=== PATIENT | male | born 1960 | race Caucasian/White ===

== ENCOUNTER 2022-04-05 13:52 | Outpatient (CLI) | payer BC, SELFPAY ==
[2022-04-05 10:43] LABS: Albumin* 4.4 g/dL (3.3-5.0)
[2022-04-05 10:44] LABS: Chloride* 98 mmol/L (96-114); Sodium* 138 mmol/L (135-149)
[2022-04-05 10:46] LABS: Bilirubin Total* 0.3 mg/dL (0.1-1.5); Blood Urea Nitrogen* 12 mg/dL (7-30); Carbon Dioxide* 30 mmol/L (20-32); Cholesterol* 152 mg/dL (90-199); Creatinine* 0.7 mg/dL (0.5-1.5); Estimated Glomerular Filt Rate 105 ml/min; Total Protein* 7.3 g/dL (6.0-8.3)
[2022-04-05 10:47] LABS: Alanine Aminotransferase* 29 U/L (4-50); Alkaline Phosphatase* 90 U/L (40-150); Aspartate Amino Transferase* 29 U/L (12-35); Calcium* 9.4 mg/dL (8.4-10.6); Glucose* 119 mg/dL (60-115); Triglycerides* 81 mg/dL (40-149)
[2022-04-05 10:48] LABS: HDL Cholesterol* 44 mg/dL (>=40); LDL Cholesterol Calculated 92 mg/dL (<100)
[2022-04-05 11:14] LABS: PSA Screen* 0.58 ng/mL (0.10-4.00)
== END 2022-04-05 13:53 | disposition home or self-care (01) ==
PROVIDERS: PCP Family Medicine; Visit Provider Family Medicine
DX: Z00.00 Encounter for general adult medical examination without abnormal findings (principal); I10 Essential (primary) hypertension; E78.5 Hyperlipidemia, unspecified; E66.01 Morbid (severe) obesity due to excess calories; Z12.5 Encounter for screening for malignant neoplasm of prostate
CPT/HCPCS: 80053; 80061; 84153

== ENCOUNTER 2022-05-13 08:17 | Outpatient (CLI) | payer BC, SELFPAY ==
--- OUTSIDE RECORDS SUMMARY | 2022-05-13 08:26 | XMS_ITS | Clinical Summary ---
:1960 [address] [facility] [email or web address] [facility] [place] [address] Care Team Providers Name Role Phone Chandrakant Garcia MD Primary Care Provider Jason Nation MD Unavailable [phone] Anum Hernandez RN Unavailable Stacey Mcdaniel RD Unavailable Allergies Active Allergy Reactions Severity Noted Date Comments Nsaids (Non-Steroidal Other - Describe In 01/30/2021 H/o felicia-n-y gastric Anti-Inflammatory Drug) Comment Field byp ass. AVOID NSAIDs and aspirin due to risk of gastric and/or G-J anastomotic ulcers. If Euge ne must be on short cou rse of NSAIDs or aspir in, use enteric coated if possible and us e PPI // Anum duffy RN, Bariatric N [facility] Clinician, [facility] Weight Management 01/30 Penicillins Nausea And Vomiting 11/14/2006 Medications Medication Sig Dispensed Refills Start Date End Date Status FLOVENT HFA 110 Inhale 2 Puffs by 0 02/14/2020 Active mcg/actuation mouth 2 times inhaler daily. albuterol HFA Inhale 2 Puffs by 0 Active (PRO-AIR; VENTOLIN; mouth 2 times PROVENTIL) 90 daily. mcg/actuation inhaler ondansetron (ZOFRAN Place 2 Tablets (8 30 Tablet 0 01/29/2021 Active ODT) 4 mg mg) on the tongue disintegrating every 8 hours if tabletIndications: needed for S/P gastric bypass Nausea/Vomiting. docusate (COLACE) Take 1 Capsule (100 100 Capsule 0 01/29/2021 Active 100 mg mg) by mouth 2 capsuleIndications: times daily if S/P gastric bypass needed for Constipation. oxygen-air delivery Oxygen for home 1 Each 0 01/31/2021 Active systems (HOME use. Liters per OXYGEN)Indications: minute: 2 LPM nasal Morbid obesity with cannula at rest, 3 BMI of 60.0-69.9, LPM nasal cannula adult (HC), Tobacco with activity. dependence, MARAH Frequency of use: (obstructive sleep Continuous with apnea), S/P gastric portability.;. bypass Length of need: 3 Months. pedi multivit Chew 1 Tablet by 0 Active 43-iron fumarate mouth 2 times (Flintstones daily. Complete, iron,) 18 mg iron chewIndications: S/P gastric bypass cyanocobalamin Place 1 Tablet 0 Active (VITAMIN B12) 1,000 (1,000 mcg) under mcg sublingual the tongue once tabletIndications: daily. S/P gastric bypass citalopram (CELEXA) Take 1 Tablet (20 0 02/23/2021 Active 20 mg tablet mg) by mouth once daily. triamterene-hydrochl Take 1 Tablet by 0 02/23/2021 Active orothiazide, 37.5-25 mouth once daily. mg, (MAXZIDE-25) 37.5-25 mg tablet acetaminophen SR Take 2 Tablets 0 02/23/2021 Active (Tylenol Arthritis (1,300 mg) by mouth Pain) 650 mg at bedtime if Extended-Release needed. Max tablet acetaminophen dose: 4000mg in 24 hrs. omeprazole Take 1 Capsule (20 28 Capsule 0 03/08/2021 Active (PriLOSEC) 20 mg mg) by mouth 2 Delayed-Release times daily before capsuleIndications: meals. X 14 days H. pylori infection clarithromycin Take 1 Tablet (500 28 tablet. 0 03/08/2021 Active (BIAXIN) 500 mg mg) by mouth 2 tabletIndications: times daily. H. pylori infection metroNIDAZOLE Take 1 Tablet (500 28 tablet. 0 03/08/2021 Active (FLAGYL) 500 mg mg) by mouth 2 tabletIndications: times daily. H. pylori infection CPAPIndications: CPAP machine for 1 Each 11 06/12/2021 Active Mild obstructive home use at sleep apnea, Sleep pressure: 5-20 cmw related hypoxia , Heated humidifier x 1 q 5yr, water chamber x 1 q 6 mo, chin strap x 1 q 6 mo, Nasal interface mask x 1 q 3mos, with nasal cushion x 2 q mo, Heated PAP tubing x 1 q 3 mo, Headgear x 1 q 6 mo, non-disposable filters x 1 q 6 mo, disposable filter x 2 q mo; Length of Need: 99 months; Frequency of use: Daily Active Problems Patient Care Coordination Note Formatting of this note might be differe nt from the original. Nutrition Order 07/11/2020 Problem Noted Date S/P laparoscopic conversion of VBG to felicia-en-Y gastri c bypass 01/29/2021 Overview: Dr. Nation Morbid obesity with BMI of 60.0-69.9, adult 01/29/2021 HTN (hypertension) 01/29/2021 MARAH (obstructive sleep apnea) 01/29/2021 Morbid obesity with BMI of 60.0-69.9, adult 12/15/2020 Meniere disease 04/22/2014 Tobacco dependence 04/26/2013 Hyperplastic colon polyp 08/24/2012 Overview: Colonoscopy 08/2012 polyp repeat in 10 ye ars Anxiety state, unspecified 07/31/2012 MARAH (obstructive sleep apnea) 09/23/2011 Mild persistent asthma 11/19/2010 HTN (hypertension) 06/29/2010 Sensorineural hearing loss, asymmetrical 05/12/2007 Obesity Immunizations Name Administration Dates Next Due Influenza, IIV3 (Age >=3 years) 04/26/2013 Tdap 10/14/2011 Family History Medical History Relation Name Comments Diabetes Father Heart Disease Father CHF, CAD-first M I age 50 Hypertension Father Obesity Father Obesity Maternal Grandfather Stroke Maternal Grandfather Hypertension Maternal Grandmother Obesity Maternal Grandmother Hypertension Mother Obesity Mother Other Mother COPD Obesity Paternal Grandfather Hyperlipidemia Sister Obesity Sister Relation Name Status Comments Father Maternal Grandfather Maternal Grandmother Mother Paternal Grandfather Sister Social History Tobacco Use Types Packs/Day Years Used Date Former Smoker Cigarettes 1 30 Quit: 11/20/20 17 Smokeless Tobacco: Never Used Tobacco Cessation: Ready to Quit: Yes; C ounseling Given: Yes Comments: 3 cigarettes a week Alcohol Use Standard Drinks/Week Comments Not Currently 6.7 (1 standard drink = 0.6 oz pure alco hol) no Alcohol Habits Answer Date Recorded How often do you have a drink containing alcohol? Not asked How many drinks containing alcohol do you have on a typical Not asked day when you are drinking? How often do you have six or more drinks on one occasion? No t asked Comment: no 05/05/2020 Sex Assigned at Date Recorded Not on file Obstetrics History Last Filed Vital Signs Vital Sign Reading Time Taken Comments Blood Pressure 137/75 01/31/2021 7:40 AM CDT Pulse 87 01/31/2021 7:40 AM CDT Temperature 37.3 ??C (99.2 ??F) 01/31/2021 7:40 AM CDT Respiratory Rate 20 01/31/2021 7:40 AM CDT Oxygen Saturation 97% 01/31/2021 7:40 AM CDT Inhaled Oxygen Concentration - - Weight 152.4 kg (336 lb) 03/15/2021 8:00 AM CDT Height 173 cm (5' 8.11) 03/15/2021 8:00 AM CDT Body Mass Index 50.92 03/15/2021 8:00 AM CDT Plan of Treatment Health Maintenance Due Date Last Done Comments Pneumococcal series for age 19-64 1966 (1 - PCV) Depression screening for age 12+ 1972 Hepatitis C screening for age 1104/23/1978 18-79 Zoster (shingles) series for age 1104/23/2010 50+ (1 of 2) Lipids for age 45-75 04/26/2018 04/26/2013, 06/29/2010, 11/04/2005 COVID-19 vaccine series (3 - 11/24/2020 09/29/2020, 021 Booster for Moderna series) Tetanus booster 10/13/2021 10/14/2011 Influenza for age 50-64 02/14/2022 04/26/2013 BMI (ht and wt on same day) for 03/15/2022 03/15/2021, 07/0 07/2020, age 18+ 08/02/2020, Additional history exists Colonoscopy through age 75 08/20/2022 08/20/2012, 3 Tdap Completed 10/14/2011 HIV for age 15-65 Completed 08/13/2013 Results Not on filefrom Last 3 Months Insurance Payer Benefit Plan / Subscriber ID Effective Dates Phone Addre ss Type Group WC WORKERS WC WORKERS COMP [id number]-Prese [phone] [place] [address] [employer] [place] [employer] [id number] 2020-Presen [address] [address] [place] [address] Antonio Lopez Workers Comp Self 1960 [address] (Home) [address] [place] [address] [place] ([place]) [place] [address] Advance Directives Latest Code Status on File Code Status Date Activated Date Inactivated Comments Full Code 01/29/2021 7:29 AM 01/31/2021 6:36 PM Code Status Discussion: Not Discussed Full Code 06/06/2020 5:55 AM 06/06/2020 11:52 AM Code Status Discussion: Not Discussed Care Teams Care Attendant Relationship Specialty Start Date End Date Chandrakant Garcia MD PCP - General Family Practice 05/02/201999 [place] [phone] Jason Nation Consulting Physician Surgery - General 05/02/20 MD [place] [address] [address] Anum Hernandez, RN Registered Nurse 05/02/20 [address] Registered Dietitian It Infrastructure Manager 05/02/20 [address] [address]
[2022-05-13 09:04] LABS: SARS Antigen* Negative (Negative)
== END 2022-05-13 08:18 | disposition home or self-care (01) ==
LOC: OP CLINIC 08:17
PROVIDERS: PCP Family Medicine; Visit Provider Surgery
DX: Z12.11 Encounter for screening for malignant neoplasm of colon (principal); K63.5 Polyp of colon; K62.1 Rectal polyp; K64.9 Unspecified hemorrhoids; K64.4 Residual hemorrhoidal skin tags; K57.30 Diverticulosis of large intestine without perforation or abscess without bleeding
CPT/HCPCS: 45385; 87426; 88305; 99153; J2250; J3010

== ENCOUNTER 2022-07-10 07:31 | Outpatient (CLI) | payer MEDICARE, MEDICAID, SELFPAY ==
[2022-07-10 10:11] LABS: Aspartate Amino Transferase* 29 U/L (12-35); Cholesterol* 154 mg/dL (90-199)
[2022-07-10 10:12] LABS: Alanine Aminotransferase* 34 U/L (4-50); HDL Cholesterol* 53 mg/dL (>=40); LDL Cholesterol Calculated 73 mg/dL (<100); Triglycerides* 139 mg/dL (40-149)
== END 2022-07-10 07:32 | disposition home or self-care (01) ==
LOC: NFLDREF 07:31
PROVIDERS: PCP Family Medicine; Visit Provider Family Medicine
DX: E78.5 Hyperlipidemia, unspecified (principal)
CPT/HCPCS: 80061; 84450; 84460

== ENCOUNTER 2022-10-04 07:14 | Outpatient (RCR) | payer MEDICARE, MEDICAID, SELFPAY ==
--- NOTE | 2022-10-07 13:19 | PT.OPEX ---
PT [place] [facility] Eval PT [facility] Outpatient Eval Start: 10/04/22 14:53 Freq: Status: Active Protocol: Document 10/04/22 14:53 HERNESTO (Rec: 10/04/22 14:56 HERNESTO [id number]) E-signed By Alex Grewal DPT, MS Physical Therapy Outpatient Evaluation Insurance Information Recert Due Date 01/02/23 Insurance Name Medicare B,[facility] Medical Diagnosis Pain in left shoulder Treating Diagnosis L shoulder pain, decreased L shoulder flexibility and ROM, L scapular dyskinesis, and L UE and periscap weakness Subjective Subjective Pt presents to PT with c/o L shoulder pain over the past 4 weeks after his dog suddenly pulled hard on the leash. Intensity of lateral shoulder pain has improved but it remains painful with lifting and reaching above shoulder height. Describes previous L shoulder dislocation ~30 years ago during a fall. Recent radiographs found mild L OA with osteophytes on the GH surfaces. Complex PMH with pt on care home disability for Meniere?s disease. Lives alone in apartment with his service dog. PMH also includes obesity and HTN. AGGR factors: lifting, reaching, sleeping on L. ALLEV factors: rest, movement. Pain Comments 0-5/10 Current Work Status Clinical Lab Clerk Disability Preferred Name Gene Precautions Therapy Limitations/Systems Review Not Limited Objective Functional Test Performed & Score Quick DASH: 52% Assessment Assessment/Impression Pt displays signs and symptoms consistent with L RC impingement. No evidence of full RC tear with functional shoulder flex and ABD AROM. + RC impingement testing. Pain with end ROM flex, ABD and functional IR. L RC and periscap weakness found with testing. Objectively pt displays decreased L shoulder flexibility and ROM, L glenohumeral hypomobility, L scapular dyskinesis, and L UE and periscap weakness. Pt responded well to joint mobs, stretching and strengthening exercises with decreased pain and improved ROM following today?s session. He will benefit from continued skilled PT intervention to address these limitations. Plan of Care Rehabilitation Potential Good Rehabilitation Potential Comments Due to obesity and deconditioning Physical Therapy Goals Short-term goals to be completed in 4 weeks: 1. Pt will report improved quality of sleep not waking due to L shoulder pain for >3 consecutive nights. 2. Pt will display improved L shoulder flex and ABD AROM > 165 deg without pain to improve tolerance to lifting and dressing activities. Long-term goals to be completed in 10 weeks: 1. Pt will be independent and compliant with his HEP 2. Pt will display improved strength for L external and internal rotation, mid and low trap strength of >4/5 to improve tolerance to lifting objects into overhead cabinets and yardwork activities. 3. Pt will report >75% improvement in quick DASH questionnaire to significantly improve karlene to daily activities. 4. Pt will display >50% improvement in L functional IR AROM to tuck in shirts. Coordination/Communication With Referral Source Treatment Plan/Direct Interventions Joint Mobilization, Neuromuscular Re-ed, Therapeutic Exercises Frequency/Duration 1x per week for 6-10 visits, decreasing frequency as able. Patient Will Be Discharged From Therapy Completion of LTG(s),Skills Plateau,Independent w/HEP, Independently Progressing Evaluation Billing Untimed Code Treatment Minutes 24 Complexity Moderate Certification Information Initial Certification Date 10/04/22 Ending Certification Date 01/02/23 Provider Signature Shows Agreement With POC & Medical Necessity Physician Signature & Date Requested Please Sign/Date Here Physician Comment/Change : Physician NPI Number #
== END 2023-01-02 23:59 | disposition home or self-care (01) ==
PROVIDERS: PCP Family Medicine; Visit Provider Family Medicine
DX: M25.512 Pain in left shoulder (principal); Z51.89 Encounter for other specified aftercare
CPT/HCPCS: 97110; 97162

== ENCOUNTER 2023-04-08 07:20 | Outpatient (CLI) | payer MEDICARE, MEDICAID, SELFPAY | END 2023-04-08 07:21 | disposition home or self-care (01) | PROVIDERS: PCP Family Medicine; Referring Provider Family Medicine; Visit Provider Family Medicine | DX: Z00.00 Encounter for general adult medical examination without abnormal findings (principal); E78.5 Hyperlipidemia, unspecified; I10 Essential (primary) hypertension; E66.01 Morbid (severe) obesity due to excess calories; Z12.5 Encounter for screening for malignant neoplasm of prostate | CPT/HCPCS: 80053; 80061; 84153 ==

== ENCOUNTER 2024-02-29 09:35 | Emergency (ER) | payer MEDICARE, SELFPAY ==
[2024-02-29 09:44] VITALS: BP 152/78; PULSE 68; RESP 18; TEMP 35.8; O2SAT 95; BMI 44.3
--- NOTE | 2024-02-29 10:34 | ED_ITS ---
HPI - General Adult General Date Seen: 02/29/24 Chief complaint: Extremity Pain/Injury, Lower Stated complaint: knee/leg pain Time Seen by Provider: 02/29/24 10:34 History of Present Illness HPI narrative: 63-year-old gentleman with a past medical history of right knee pain, C7 radiculopathy, elevated BMI, sleep apnea, carpal tunnel surgery, hyperlipidemia, tobacco dependence, Meniere's disease, asthma, anxiety/depression, hypertension, Sergio-en-Y gastric bypass surgery, cholecystectomy. He presents to the ER today for left knee pain. He recalls that he has some chronic hip and knee pain from arthritis. He was walking yesterday. He did not have any specific fall or injury but wonders if he might have twisted his knee. He felt a pop somewhere inside of his left knee and ever since then he has been having knee pain and also some pain up into his right hip. No pain distally in the calf or ankle. He notes that the knee has gotten a little bit swollen and stiff today. It is hurting to walk on it. No fever or chills. No redness of the knee. No numbness or weakness in his leg. He has little bit of swelling in his knee but no swelling in the thigh or calf Related Data Home Medications ?Medication ?Instructions ?Recorded ?Confirmed Semaglutide 0.4 ml INJECTION QWEEK 07/31/23 10/28/23 Previous Rx's ?Medication ?Instructions ?Recorded albuterol sulfate 90 mcg/actuation 2 puff inhalation Q4-6H PRN 04/10/23 aerosol inhaler shortness of breath or wheezing #8.5 grams acetaminophen 650 mg 650 mg PO Q12H PRN arthritis #180 07/10/23 tablet,extended release (Tylenol tabs Arthritis Pain) fluticasone furoate 100 1 inh inhalation QDAY #90 ea 08/14/23 mcg/actuation blister powder for inhalation (Arnuity Ellipta) simvastatin 20 mg tablet 20 mg PO QPM #90 tabs 08/15/23 tamsulosin 0.4 mg capsule 0.4 - 0.8 mg (1 - 2 x 0.4 mg) PO 08/15/23 QHS #180 caps cetirizine 10 mg tablet (Zyrtec) 10 mg PO QDAY PRN itching #30 tabs 10/28/23 triamcinolone acetonide 0.1 % 1 applic topical BID #15 grams 10/28/23 topical cream triamterene 37.5 1 tab PO QDAY #90 tabs 12/09/23 mg-hydrochlorothiazide 25 mg tablet citalopram 20 mg tablet 20 mg PO QDAY #90 tabs 02/19/24 hydrocodone 5 mg-acetaminophen 325 1 - 2 tab PO Q6H PRN pain #10 tabs 02/29/24 mg tablet Allergies Allergy/AdvReac Type Severity Reaction Status Date / Time penicillin V Allergy Mild Unknown Verified 10/28/23 10:59 NSAIDS (Non-Steroidal Allergy Unknown Hx of Verified 10/28/23 10:59 Anti-Inflamma gastrobypass PFSH PFSH Medical History Morbid (severe) obesity due to excess calories ?E66.01 - Morbid (severe) obesity due to excess calories (ICD-10) Health care directive on file ?Z78.9 - Other specified health status (ICD-10) Surgical History (Updated 01/07/23 @ 08:24 by Angelina Mann ~ [facility], [facility]) Status post gastroplasty ?Z98.890 - Other specified postprocedural states (ICD-10) History of Sergio-en-Y gastric bypass (~02/2021) ?Z98.84 - Bariatric surgery status (ICD-10) History of colonoscopy ?Z98.890 - Other specified postprocedural states (ICD-10) History of cholecystectomy ?Z90.49 - Acquired absence of other specified parts of digestive tract (ICD- 10) Family History Other Colon cancer Social History (Updated 01/07/23 @ 08:23 by Angelina Mann ~ [facility], [facility]) Smoking Status: Former smoker What tobacco products do you use: cigarettes Smoking quit date/years: <= 15 years ago Do you use any of these nicotine containing products: None Second hand tobacco smoke exposure: No How often do you have a drink containing alcohol: never AUDIT-C Alcohol total score: 0 Non-prescribed substance use: denies use Little interest or pleasure in doing things: several days Feeling down, depressed, or hopeless: not at all Exam Narrative: Exam Narrative: Constitutional: Appears well-developed and well-nourished. Alert. Conversant. Non toxic. HENT: Head: Atraumatic. Nose: Nose normal. Mouth/Throat: Oral mucosa is clear and moist. no trismus.. Eyes: Conjunctivae normal. EOM normal. Pupils equal, round, and reactive to light. No scleral icterus. Neck: Normal range of motion. Neck supple. No tracheal deviation present. Cardiovascular: Normal rate, regular rhythm. No gallop. No friction rub. No murmur heard. Symmetric PT artery pulses Pulmonary/Chest: Effort normal. No stridor. No respiratory distress. No wheezes. No rales. No rhonchi . Musculoskeletal: RUE: Normal range of motion. No tenderness. No deformity LUE: Normal range of motion. No tenderness. No deformity RLE: Normal range of motion. No edema. No tenderness. No deformity Pelvis is stable LLE: Normal range of motion in his hip. No foreshortening or rotation. No tenderness over the lateral pelvis, posterior pelvis, greater trochanter. Quadriceps, hamstring, femoral shaft nontender. Knee: Very subtle swelling there. No redness or warmth. No definite ballotable effusion. Patella nontender. No crepitus. No definite point tenderness over the medial or lateral joint lines. Popliteal fossa nontender. He has pain with knee range of motion. He prefers to keep his knee fully extended. He is only able to actively flex up to about 30?. No ligamentous laxity of ACL, PCL, MCL, LCL, but my exam is limited by stiffness and muscular guarding. Neurological: Alert and oriented to person, place, and time. Normal strength. CN II-VII intact. No sensory deficit. GCS eye subscore is 4. GCS verbal subscore is 5. GCS motor subscore is 6. Normal coordination intact distal sensory and motor function. Skin: Skin is warm and dry. No rash noted. No pallor. Normal distal capillary refill. Psychiatric: Normal mood. Normal affect. Const: Vital Signs, click to edit/add: Vital Signs - 24 hr 02/29/24 09:44 Temperature 96.4 F L Pulse Rate [Pulse Oximeter] 68 Respiratory Rate 18 Blood Pressure [Ri ght Upper Arm] 152/78 H Pulse Oximetry 95 Oxygen Delivery Me thod Room Air Course Vital Signs Vital signs: Initial Vital Signs Temperature 96.4 F L 02/29/24 09:44 Temperature Source Temporal Artery Scan 02/29/24 09:44 Pulse Rate 68 02/29/24 09:44 Respiratory Rate 18 02/29/24 09:44 Blood Pressure 152/78 H 02/29/24 09:44 Blood Pressure Mean 102 02/29/24 09:44 Blood Pressure Position Supine 02/29/24 09:44 Pulse Oximetry 95 02/29/24 09:44 Oxygen Delivery Method Room Air 02/29/24 09:44 Vital Signs Temperature 96.4 F L 02/29/24 09:44 Pulse Rate 68 02/29/24 09:44 Respiratory Rate 18 02/29/24 09:44 Blood Pressure 152/78 H 02/29/24 09:44 Pulse Oximetry 95 02/29/24 09:44 Oxygen Delivery Method Room Air 02/29/24 09:44 Temperature 96.4 F L 02/29/24 09:44 Pulse Rate 68 02/29/24 09:44 Respiratory Rate 18 02/29/24 09:44 Blood Pressure 152/78 H 02/29/24 09:44 Pulse Oximetry 95 02/29/24 09:44 Oxygen Delivery Method Room Air 02/29/24 09:44 Medications Administered Medications: Discontinued Medications Generic Name Dose Route Start Last Admin Trade Name Freq PRN Reason Stop Dose Admin Hydrocodone Bitart/Acetaminophen 1 tab 02/29/24 10:51 02/29/24 10:54 Hydrocodone-Acetamin 5-325 Mg 1 Tab PO 02/29/24 10:52 1 tab ONCE ONE Administration Medical Decision Making MDM Narrative Medical decision making narrative: Very pleasant 63-year-old gentleman presenting to the ER today with atraumatic left knee pain. He was walking yesterday and felt a pop in his left knee and since then has been having pain. X-rays are obtained and are negative for any acute fracture. With the pop in the knee, suspicious for possible ligament or meniscus injury. On my ligamentous exam there is no obvious laxity although my exam could be limited by muscular guarding. He does have what I think is a very small joint effusion. There is no redness or warmth of the knee to suggest septic arthritis or crystalline arthritis. At this point I do not think he would benefit from attempts at arthrocentesis, in fact the risk of seeding and infection with our so since she is probably outweigh the benefit. No evidence for cellulitis of the leg, DVT. No evidence for acute limb ischemia. Although the pain radiates up to his hip, this really seems to be a knee problem rather than hip problem so would hold off on hip or pelvis x-rays for now. No evidence for femoral shaft fracture. Will place into a knee immobilizer. Who continues Tylenol if if needed for pain and add Belden if needed for pain uncontrolled by Tylenol. Prescription to [facility]. Reviewed opiate precautions. He will follow-up follow-up with the [facility] this week for re-evaluation. Will use the knee immobilizer when up and around until then. Discussed may need further workup with repeat exam and/or MRI. Imaging Data XR left knee three views: Attestation: I have reviewed the pertinent imaging results. My impression: Possible osteophyte from proximal tibia. No other definite acute fracture Radiologist's impression: IMPRESSION: No acute fracture. Dystrophic focus mineralization in the soft tissues superficial to the patellar tendon or adjacent medial retinaculum. No joint effusion. No fracture or bone lesion. Mild tricompartmental osteoarthritis in the medial compartment greater than patellofemoral and lateral. Discharge Plan Discharge Clinical Impression: Acute pain of left knee Patient Disposition: Home, Self-Care Instructions: Knee Pain (ED) Additional Instructions: As we discussed please come back to the ER right away if you have worsening or uncontrolled pain, worsening swelling, redness or warmth of your knee, high fever, or any problems Please call the [facility] tomorrow to arrange an ER follow-up appointment for within the next 2-4 days. [phone]. Use caution with hydrocodone because it can cause dizziness, drowsiness, constipation, and can be addictive Prescriptions: New hydrocodone-acetaminophen 5-325 mg tablet 1 - 2 tab PO Q6H PRN (Reason: pain) Qty: 10 0RF No Action albuterol sulfate 90 mcg/actuation HFA aerosol inhaler 2 puff inhalation Q4-6H PRN (Reason: shortness of breath or wheezing) Qty: 8.5 4RF Semaglutide 0.4 ml INJECTION QWEEK cetirizine [Zyrtec] 10 mg tablet 10 mg PO QDAY PRN (Reason: itching) Qty: 30 0RF triamcinolone acetonide 0.1 % cream 1 applic topical BID Qty: 15 0RF Rx Instructions: Small amount twice a day on forearms as needed for itching max 7 days acetaminophen [Tylenol Arthritis Pain] 650 mg tablet extended release 650 mg PO Q12H PRN (Reason: arthritis) Qty: 180 0RF Arnuity Ellipta 100 mcg/actuation blister with device 1 inh inhalation QDAY Qty: 90 1RF simvastatin 20 mg tablet 20 mg PO QPM Qty: 90 2RF tamsulosin 0.4 mg capsule 0.4 - 0.8 mg PO QHS Qty: 180 2RF triamterene-hydrochlorothiazid 37.5-25 mg tablet 1 tab PO QDAY Qty: 90 1RF citalopram 20 mg tablet 20 mg PO QDAY Qty: 90 0RF Follow Up/Referrals: Chandrakant Garcia MD [Primary Care Provider] - Stand Alone Forms: My[facility] Info Instructions
--- NOTE | 2024-02-29 10:51 | CRLHL7_ITS ---
For Patients: As a result of the Cures Act, medical imaging exams and procedure reports are released immediately into your electronic medical record. You may view this report before your referring provider. If you have questions, please contact your health care provider. INDICATION: Pain and popping. TECHNIQUE: Three views left knee. IMPRESSION: No acute fracture. Dystrophic focus mineralization in the soft tissues superficial to the patellar tendon or adjacent medial retinaculum. No joint effusion. No fracture or bone lesion. Mild tricompartmental osteoarthritis in the medial compartment greater than patellofemoral and lateral. Dictated by Jovanny Massey MD @ 02/29/2024 12:10:12 PM (Electronically Signed)
[2024-02-29] MEDS: HYDROCODONE-ACETAMIN 5-325 MG 1 TAB PO (10:54)
--- OUTSIDE RECORDS SUMMARY | 2024-02-29 11:05 | XMS_ITS | Clinical Summary ---
Author Organization [facility] s & [facility] Affiliates Address [place], [place] [address] Care Team Providers Care Career Technical Education Teacher Name Role Phone Chandrakant Garcia MD Primary Care Provider Jason Nation MD Unavailable Anum Keane RN Unavailable [phone] Unavailable [phone] Allergies Active Allergy Reactions Criticality Noted Date Comments Nsaids (Non-Steroidal Anti-Inflammatory Drug) Other - Describe In Comment Field 01/30/2021 H/o felicia-n-y gastric bypass. AVOID NSAIDs and aspirin due to risk of gastric and/or G-J anastomotic ulcers. If Antonio must be on short course of NSAIDs or aspirin, use enteric coated if possible and use PPI // Anum Hernandez RN, Bariatric Nurse Clinician, [facility] Weight Management 01/30/2021 Penicillins Nausea And Vomiting 11/14/2006 Medications Medication Sig Dispensed Refills Start Date End Date Status FLOVENT HFA 110 mcg/actuation inhaler Inhale 2 Puffs by mouth 2 times daily. 02/14/2020 Active albuterol HFA (PRO-AIR; VENTOLIN; PROVENTIL) 90 mcg/actuation inhaler Inhale 2 Puffs by mouth 2 times daily. Active pedi multivit 43-iron fumarate (Flintstones Complete, iron,) 18 mg iron chewIndications:S/P gastric bypass Chew 1 Tablet by mouth 2 times daily. 0 Active cyanocobalamin (VITAMIN B12) 1,000 mcg sublingual tabletIndications:S /P gastric bypass Place 1 Tablet (1,000 mcg) under the tongue once daily. 0 Active citalopram (CELEXA) 20 mg tablet Take 1 Tablet (20 mg) by mouth once daily. 02/23/2021 Active triamterene-hydroch lorothiazide, 37.5-25 mg, (MAXZIDE-25) 37.5-25 mg tablet Take 1 Tablet by mouth once daily. 0 02/23/2021 Active acetaminophen SR (Tylenol Arthritis Pain) 650 mg Extended-Release tablet Take 2 Tablets (1,300 mg) by mouth at bedtime if needed. Max acetaminophen dose: 4000mg in 24 hrs. 0 02/23/2021 Active CPAPIndications:Mil d obstructive sleep apnea,Sleep related hypoxia CPAP machine for home use at pressure: 5-20 cmw , Heated humidifier x 1 q 5yr, [...] Need: 99 months; Frequency of use: Daily 1 Each 11 06/12/2021 Active Active Problems Patient Care Coordination No te Formatting of this note migh t be different from the original. 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 Nation Morbid obesity with BMI of 60.0-69.9, adult 01/14 HTN (hypertension) 01/29/2021 MARAH (obstructive sleep apnea) 01/29/2021 Morbid obesity with BMI of 60.0-69.9, adult /07/2020 Meniere disease 04/22/2014 Tobacco dependence 04/26/2013 Hyperplastic colon polyp 08/24/2012 Overview (08/24/2012): Colonoscopy 08/2012 polyp repeat in 10 years Anxiety state, unspecified 07/31/2012 MARAH (obstructive sleep apnea) 09/23/2011 Mild persistent asthma 11/19/2010 HTN (hypertension) 06/29/2010 Sensorineural hearing loss, asymmetrical 007 Obesity Immunizations Name Administration Dates Next Due Influenza, IIV3 (Age >=3 years) 04/26/2013 Tdap 10/14/2011 Family History Medical History Relation Name Comments Diabetes Father Heart Disease Father CHF, CAD-first [place] age 50 Hypertension Father Obesity Father Obesity Maternal Grandfather Stroke Maternal Grandfather Hypertension Maternal Grandmother Obesity Maternal Grandmother Hypertension Mother Obesity Mother Other Mother COPD Obesity Paternal Grandfather Hyperlipidemia Sister Obesity Sister Relation Name Status Comments Father Maternal Grandfather Maternal Grandmother Mother Paternal Grandfather Sister Social History Tobacco Use Types Packs/Day Years Used Date Smoking Tobacco: Former Cigarettes 1 30 1 07/05/1986 - 05/05/2017 Smokeless Tobacco: Never Tobacco Cessation:Ready to Q uit: Yes; Counseling Given: Yes Comments:3 cigarettes a week Alcohol Use Standard Drinks/Week Comments Not Currently 6.7 (1 standard drink = 0.6 oz p ure alcohol) no Social Connections Answer Date Recorded Frequency of Communication with Friends and Fami ly Not on file 06/11/2021 Financial Resource Strain Answer Date R ecorded Difficulty of Paying Living Expenses Not on file 06/11/2021 Difficulty of Paying Living Expenses Not on file 06/11/2021 Sex and Gender Information Value Date Recorded Sex Assigned at Not on file Gender Identity Not on file Sexual Orientation Not on file Obstetrics History Last Filed Vital Signs Vital Sign Reading Time Taken Comments Blood Pressure 137/75 01/31/2021 7:40 AM CDT Pulse 87 01/31/2021 7:40 AM CDT Temperature 37.3 ??C (99.2 ??F) 01/31/2021 7:40 AM CD T Respiratory Rate 20 01/31/2021 7:40 AM CDT Oxygen Saturation 97% 01/31/2021 7:40 AM CDT Inhaled Oxygen Concentration - - Weight 152.4 kg (336 lb) 03/15/2021 8:00 AM CDT Height 173 cm (5' 8.11) 03/15/2021 8:00 AM CDT Body Mass Index 50.92 03/15/2021 8:00 AM CDT Plan of Treatment Health Maintenance Due Date Last Done Comments Depression screening for age 12+ 1972 Hepatitis C screening for age 18-79 1978 Zoster (shingles) series for age 50+ (1 of 2) 2010 Lipids for age 45-75 04/26/2018 04/26/2013, 06/29/2010, 11/04/2005 Tetanus booster 10/13/2021 10/14/2011 BMI (ht and wt on same day) for age 18+ 03/15/2022 03/15/2021, 12/15/2020, 08/02/2020, Additional history exists Colonoscopy through age 75 08/20/2022 08/20/2012, COVID-19 vaccine series (2022-24 season) 2024 2022, 10/16/2021, 06/18/2021, Additional history exists Influenza for age 50-64 02/15/2024 04/26/2013 Tdap Completed 10/14/2011 HIV for age 15-65 Completed 08/13/2013 Pneumococcal series for age 6-64 Aged Out No longer eligible based on patient's age to complete this topic Procedures Procedure Name Priority Date/Time Associated Diagnosis Comments ANTI HIV 1/2 Routine 08/13/2013 10:19 AM WEIGH TANK OPERATOR Peripheral neuropathy (HC) LIPID PANEL W REFLEX MEASURED LDL Routine 04/26/2013 11:20 AM WEIGH TANK OPERATOR Lipid screening from Last 3 Months or Most Recently Relevant to Health Maintenance Results * ANTI HIV 1/2 (08/13/2013 10:19 AM WEIGH TANK OPERATOR) ANTI HIV 1/2 Non-reacti ve [facility] Blood specimen (specimen) BLOOD SPECIMEN / Unknown 08/13/2013 10:19 AM WEIGH TANK OPERATOR 08/13/2013 10:10 AM WEIGH TANK OPERATOR Kely Caal MD SEND OUTS [facility] INTERNAL ZIP [address] [place] [address] * LIPID PANEL W REFLEX MEASURED LDL (04/26/2013 11:20 AM WEIGH TANK OPERATOR) [facility] Signature CHOLESTEROL,TOTAL 144 100 - 199 mg/dL 04/26/2013 12:17 PM WEIGH TANK OPERATOR [facility] TRIGLYCERIDES 113 <150 mg/dL 04/26/2013 12:17 PM [facility] HDL CHOLESTEROL 45 >40 mg/dL 3 12:17 PM WEIGH TANK OPERATOR [facility] NON-HDL CHOLESTEROL 99 <145 mg/dl 04/26/2013 12:17 PM [facility] CHOL/HDL RATIO 3.20 <4.50 04/26/2013 12:17 PM [facility] LDL CHOLESTEROL 76 <=130 mg/dL 04/26/2013 12:17 PM [facility] PATIENT STATUS NON-FASTI NG 04/26/2013 12:17 PM [facility] Blood specimen (specimen) BLOOD SPECIMEN / Unknown Venipuncture / Unknown 04/26/2013 11:20 AM WEIGH TANK OPERATOR 04/26/2013 11:20 AM WEIGH TANK OPERATOR Kely Caal MD CHEMISTRY [facility] [address] [place] [address] from Last 3 Months or Most Recently Relevant to Health Maintenance Advance Directives * Full Code (Latest Code Status on File) Date Activated Date Inactivated Comments 01/29/2021 7:29 AM 01/31/2021 6:36 PM Question Answer Comments Code Status Discussion: Not Discussed * Full Code Date Activated Date Inactivated Comments 06/06/2020 5:55 AM 06/06/2020 11:52 AM Question Answer Comments Code Status Discussion: Not Discussed Care Teams Career Technical Education Teacher Relationship Specialty Start Date End Date Chandrakant Garcia MD [address] [place] [address] PCP - General Family Practice 05/02/20 Jason Nation MD [address] [place] [id number] Consulting Physician Surgery - General 05/02/20 Anum Keane RN [address] [place] [address] Registered Nurse 05/02/[address] [place] [address] Registered Dietitian Radiation Oncology Therapist 05/02/20
== END 2024-02-29 12:45 | disposition home or self-care (01) ==
PROVIDERS: Emergency Provider Emergency Medicine; PCP Family Medicine
DX: M25.562 Pain in left knee (principal)
CPT/HCPCS: 73562; 99282; 99283; 99284; A9270

== ENCOUNTER 2024-04-08 07:28 | Outpatient (CLI) | payer MEDICARE, SELFPAY ==
--- OUTSIDE RECORDS SUMMARY | 2024-04-09 11:22 | XMS_ITS | Clinical Summary ---
Author Organization [facility] s & [facility] Affiliates Address [place], [place] [address] Care Team Providers Care Assembly Hand Name Role Phone Chandrakant Garcia MD Primary Care Provider [phone] Jason Nation MD Unavailable Anum Keane RN Unavailable [phone] Unavailable [phone] Allergies Active Allergy Reactions Criticality Noted Date Comments Nsaids (Non-Steroidal Anti-Inflammatory Drug) Other - Describe In Comment Field 01/30/2021 H/o felicia-n-y gastric bypass. AVOID NSAIDs and aspirin due to risk of gastric and/or G-J anastomotic ulcers. If Antonio must be on short course of NSAIDs or aspirin, use enteric coated if possible and use PPI // Anum Hernandez RN, Bariatric Nurse Clinician, [facility] Weight Management 01/30/2021 Penicillins Nausea And Vomiting [...] months; Frequency of use: Daily 1 Each 06/12/2021 Active Active Problems Patient Care Coordination [...] Morbid obesity with BMI of 60.0-69.9, adult 07/07/2020 Meniere disease 04/22/2014 Tobacco dependence 04/26/2013 Hyperplastic colon polyp 08/24/2012 Overview (08/24/2012): Colonoscopy 08/2012 polyp repeat in 10 years Anxiety state, unspecified 07/31/2012 MARAH (obstructive sleep apnea) 09/23/2011 Mild persistent asthma 11/19/2010 HTN (hypertension) 06/29/2010 Sensorineural hearing loss, asymmetrical 007 Obesity Encounters Date Type Department Care Team Description 03/18/2024 10:00 AM CDT Office Visit [facility] [address] [place], [place] [id number] Jonny Kimball, [facility] 03/18/2024 Travel from Last 3 Months Immunizations Name Administration Dates Next Due Influenza, IIV3 (Age >=3 years) 04/26/2013 Tdap 10/14/2011 Family History Medical History Relation Name Comments Diabetes Father Heart Disease Father CHF, CAD-first [place] age 50 Hypertension Father Obesity Father Obesity [...] age 75 08/20/2022 08/20/2012, COVID-19 vaccine series ( season) 2024 04/10/2023, 2022, 10/16/2021, Additional history exists Influenza for age 50-64 02/15/2024 04/26/2013 Tdap Completed 10/14/2011 HIV for age 15-65 Completed 08/13/2013 Pneumococcal series for age 6-64 Aged Out No longer eligible based on patient's age to complete this topic Procedures Procedure Name Priority Date/Time Associated Diagnosis Comments ANTI HIV 1/2 Routine 08/13/2013 10:19 AM DIRECTOR BUSINESS MANAGEMENT Peripheral neuropathy (HC) LIPID PANEL W REFLEX MEASURED LDL Routine 04/26/2013 11:20 AM DIRECTOR BUSINESS MANAGEMENT Lipid screening from Last 3 Months or Most Recently Relevant to Health Maintenance Results * ANTI HIV 1/2 (08/13/2013 10:19 AM DIRECTOR BUSINESS MANAGEMENT) ANTI HIV 1/2 Non-reacti ve [facility] Blood specimen (specimen) BLOOD SPECIMEN / Unknown 08/13/2013 10:19 AM DIRECTOR BUSINESS MANAGEMENT 08/13/2013 10:10 AM DIRECTOR BUSINESS MANAGEMENT Kely Caal MD SEND OUTS [facility] INTERNAL ZIP [address] [place] [address] * LIPID PANEL W REFLEX MEASURED LDL (04/26/2013 11:20 AM DIRECTOR BUSINESS MANAGEMENT) CHOLESTEROL,TOTAL 144 100 - 199 mg/dL 04/26/2013 12:17 PM [facility] TRIGLYCERIDES 113 <150 mg/dL 04/26/2013 12:17 PM [facility] HDL CHOLESTEROL 45 >40 mg/dL 3 12:17 PM [facility] NON-HDL CHOLESTEROL 99 <145 mg/dl 04/26/2013 12:17 PM [facility] CHOL/HDL RATIO 3.20 <4.50 04/26/2013 12:17 PM [facility] LDL CHOLESTEROL 76 <=130 mg/dL 04/26/2013 12:17 PM [facility] PATIENT STATUS NON-FASTI NG 04/26/2013 12:17 PM [facility] Blood specimen (specimen) BLOOD SPECIMEN / Unknown Venipuncture / Unknown 04/26/2013 11:20 AM DIRECTOR BUSINESS MANAGEMENT 04/26/2013 11:20 AM DIRECTOR BUSINESS MANAGEMENT Kely Caal MD CHEMISTRY [facility] [address] [place] [address] from Last 3 Months or Most Recently [...] Code Status Discussion: Not Discussed Care Teams Assembly Hand Relationship Specialty Start Date End Date Chandrakant Garcia MD [address] [place] [address] PCP - General Family Practice 05/02/20 Jason Nation MD [address] [address] Consulting Physician Surgery - General 05/02/20 Anum Keane RN [address] [place] [address] [place] [address] Registered Nurse 05/02/[address] [place] [address] [place] [address] Registered Dietitian Construction Producer 05/02/20
== END 2024-04-08 07:29 | disposition home or self-care (01) ==
LOC: NFLDREF 04-09 11:20
PROVIDERS: PCP Family Medicine; Referring Provider Family Medicine; Visit Provider Family Medicine
DX: Z00.00 Encounter for general adult medical examination without abnormal findings (principal); E78.5 Hyperlipidemia, unspecified; Z12.5 Encounter for screening for malignant neoplasm of prostate; E66.01 Morbid (severe) obesity due to excess calories; I10 Essential (primary) hypertension
CPT/HCPCS: 80053; 80061; G0103

== ENCOUNTER 2024-06-30 07:55 | Outpatient (CLI) | payer MEDICARE, SELFPAY | END 2024-06-30 07:56 | disposition home or self-care (01) | LOC: NFLDREF 07-07 10:26 | PROVIDERS: PCP Family Medicine; Referring Provider Family Medicine; Visit Provider Family Medicine | DX: R60.0 Localized edema (principal) | CPT/HCPCS: 80048 ==

== ENCOUNTER 2024-07-31 19:08 | Emergency (ER) | payer MEDICARE, SELFPAY ==
--- OUTSIDE RECORDS SUMMARY | 2024-07-31 19:10 | XMS_ITS | Clinical Summary ---
Author Organization [facility] Address [address] [facility] , [address] [place] [address] Phone Care Team Providers Care Graphic Production Artist Name Role Phone Ruma ROWE, Morris Lynch Conditions or Problems Problem Name Problem Code Onset Date Status Entry Date Provider Comment Standard Description Annotate Left median neuropathy 485901332 (SNOMED CT) Active Morris Hendrix MD Median neuropathy Cervical radiculopath y, left 94264625 (SNOMED CT) Active Morris Hendrix MD Cervical radiculopathy Medications No information available. Medications Administered No information available. Allergies, Adverse Reactions, Alerts No information available. Results Date Name Value Unit Range Flag Description Internal Other: Authorizatio n - OBS [email or web address] Yes Authoriza tion: Release of Information - Authorize [facility] - Payment and Healthcare Operations [email or web address] Yes Authoriz ation: Release of Information - Authorize Others/Insurance - Payment and Healthcare Operations HIECONSENT Yes Consent To Release information to the Health Information Exchange (HIE) [email or web address] Yes Authorizat ion: Authorization for [facility] to leave messages, voicemail, send text messages, send emails [email or web address] Yes Authoriz ation: Release/Retrieval of Information to/from Healthcare Facilities, Pharmacy Benefit Payers and Providers [email or web address] Yes Authoriz ation: Notice of privacy practices AUTHBENEFIT Yes Authoriza tion: Assignment of Benefits and Payment Agreement Plan of Care No information available. Procedures Code Procedure Name Date Entry Date CPT-00758 Nerve Conduction 9-10 studies CPT-70299 EMG with NCS (5+ muscles) - 1 limb 11/07 Vital Signs No information available. Immunizations No information available. Advance Directives No information available.
--- OUTSIDE RECORDS SUMMARY | 2024-07-31 19:10 | XMS_ITS | CCD ---
Author Organization Unknown Care Team Providers Care Rollway Man Name Role Phone [facility], [place] Primary Care Provider Unava ilable Unavailable Chronic Care Management Unavaila ble Summary Purpose DataExchange Insurance Providers Payer name Policy type / Coverage type Covered democrat ID Effective Begin Date Effective End Date [facility] Commercial Insurance [id number] Unknown [facility] Commercial Insurance [id number] Unknown Family History Family History data not found Medication Administered No Medication Administered data Reason For Visit No Reason For Visit data
--- OUTSIDE RECORDS SUMMARY | 2024-07-31 19:10 | XMS_ITS | Clinical Summary ---
Author Organization [facility] s & [facility] Affiliates Address [place], [place] [address] Care Team Providers Care Activity Aid Name Role Phone Chandrakant Garcia MD Primary Care Provider Jason Nation MD Unavailable [phone] Anum Keane RN Unavailable [phone] Unavailable [phone] Allergies Active Allergy Reactions Criticality Noted Date Comments Nsaids (Non-Steroidal Anti-Inflammatory Drug) Other - Describe In Comment Field 01/30/2021 H/o felicia-n-y gastric bypass. AVOID NSAIDs and aspirin due to risk of gastric and/or G-J anastomotic ulcers. If Antonio must be on short course of NSAIDs or aspirin, use enteric coated if possible and use PPI // Anum Hernandez RN, Bariatric Nurse Clinician, [facility] Weight Management 01/30/2021 Penicillins Nausea And Vomiting 11/14/2006 Medications FLOVENT HFA 110 mcg/actuation inhaler Inhale 2 Puffs by mouth 2 times daily. 0 Active albuterol HFA (PRO-AIR; VENTOLIN; PROVENTIL) 90 mcg/actuation inhaler Inhale 2 Puffs by mouth 2 times daily. Active pedi multivit 43-iron fumarate (Flintstones Complete, iron,) 18 mg iron chewIndications :S/P gastric bypass Chew 1 Tablet by mouth 2 times daily. 0 Active cyanocobalamin (VITAMIN B12) 1,000 mcg sublingual tabletIndicatio ns:S/P gastric bypass Place 1 Tablet (1,000 mcg) under the tongue once daily. 0 Active citalopram (CELEXA) 20 mg tablet Take 1 Tablet (20 mg) by mouth once daily. 1 Active triamterene-hyd rochlorothiazid e, 37.5-25 mg, (MAXZIDE-25) 37.5-25 mg tablet Take 1 Tablet by mouth once daily. 0 1 Active acetaminophen SR (Tylenol Arthritis Pain) 650 mg Extended-Releas e tablet Take 2 Tablets (1,300 mg) by mouth at bedtime if needed. Max acetaminophen dose: 4000mg in 24 hrs. 0 1 Active CPAPIndications :Mild obstructive sleep apnea,Sleep related hypoxia CPAP machine [...] Frequency of use: Daily 1 Each 11 1 Active Active Problems Patient Care Coordination No [...] Diabetes Father Heart Disease Father CHF, CAD-first [place] age 50 Hypertension Father Obesity Father Obesity [...] Recorded Sex Assigned at Not on file Legal Sex Male 6:40 AM PILLOW CLEANER Gender Identity Not on file Sexual Orientation Not on file Obstetrics History Last Filed Vital Signs Vital Sign Reading Time Taken Comments Blood Pressure 137/75 01/31/2021 7:40 AM CDT Pulse 87 01/31/2021 7:40 AM CDT Temperature 37.3 C (99.2 F) 01/31/2021 7:40 AM CDT Respiratory Rate 20 [...] Hepatitis C screening for age 18-79 1978 Pneumococcal series for age 50+ (1 of 1 - PCV) 2010 Zoster (shingles) series for age 50+ (1 of 2) 2010 Lipids for age 45-75 04/26/2018 04/26/2013, 06/29/2010, 11/04/2005 RSV vaccine for adults or (1 - Risk 60-74 years 1-dose series) 2020 Tetanus booster 10/13/2021 10/14/2011 BMI (ht and wt on same day) for age 18+ 03/15/2022 03/15/2021, 12/15/2020, 08/02/2020, Additional history exists Colonoscopy through age 75 08/20/2022 08/20/2012, COVID-19 vaccine series ( season) 2024 04/10/2023, 2022, 10/16/2021, Additional history exists Influenza for age 50-64 02/15/2024 04/26/2013 Tdap Completed 10/14/2011 HIV for age 15-65 Completed 08/13/2013 Pneumococcal series for age 6-49 Aged Out No longer eligible based on patient's age to complete this topic Procedures Procedure Name Priority Date/Time Associated Diagnosis Comments ANTI HIV 1/2 Routine 08/13/2013 10:19 AM PILLOW CLEANER Peripheral neuropathy (HC) LIPID PANEL W REFLEX MEASURED LDL Routine 04/26/2013 11:20 AM PILLOW CLEANER Lipid screening from Last 3 Months or Most Recently Relevant to Health Maintenance Results * ANTI HIV 1/2 (08/13/2013 10:19 AM PILLOW CLEANER) ANTI HIV 1/2 Non-reacti ve [facility] Blood specimen (specimen) BLOOD SPECIMEN / Unknown 08/13/2013 10:19 AM PILLOW CLEANER 08/13/2013 10:10 AM PILLOW CLEANER us Kely Caal MD SEND OUTS Final R esult [facility] INTERNAL ZIP [address] [place] [address] * LIPID PANEL W REFLEX MEASURED LDL (04/26/2013 11:20 AM PILLOW CLEANER) CHOLESTEROL,TOTAL 144 100 - 199 mg/dL 04/26/2013 12:[address] [facility] TRIGLYCERIDES 113 <150 mg/dL 04/26/2013 12:17 PM [facility] HDL CHOLESTEROL 45 >40 mg/dL 3 12:[address] [facility] NON-HDL CHOLESTEROL 99 <145 mg/dl 04/26/2013 12:17 PM [facility] CHOL/HDL RATIO 3.20 <4.50 04/26/2013 12:17 PM [facility] LDL CHOLESTEROL 76 <=130 mg/dL 04/26/2013 12:17 PM [facility] PATIENT STATUS NON-FASTI NG 04/26/2013 12:17 PM [facility] Blood specimen (specimen) BLOOD SPECIMEN / Unknown Venipuncture / Unknown 04/26/2013 11:20 AM PILLOW CLEANER 04/26/2013 11:20 AM [facility] Kely Caal MD CHEMISTRY Final R esult Performing Organization Address City/State/[facility] Co de Phone Number [facility] [address] [place] [address] from Last 3 Months or Most Recently Relevant to Health [id number] [facility] [id number] [place] [id number] WORKERS COMP Advance Directives * Full Code (Latest Code Status on File) Date Activated Date Inactivated Comments 01/29/2021 7:29 AM 01/31/2021 6:36 PM Question Answer Comments Code Status Discussion: Not Discussed * Full Code Date Activated Date Inactivated Comments 06/06/2020 5:55 AM 06/06/2020 11:52 AM Question Answer Comments Code Status Discussion: Not Discussed Care Teams Activity Aid Relationship Specialty Start Date End Date Chandrakant Garcia MD [address] [facility] [place] [phone] PCP - General Family Practice 05/02/20 Jason Nation MD [address] [address] Consulting Physician Surgery - General 05/02/20 Anum Keane RN [address] [address] Registered Nurse 05/02/[address] [address] Registered Dietitian Head Of Talent Management 05/02/20
[2024-07-31 19:11] VITALS: BP 171/69; PULSE 72; RESP 18; TEMP 36.6; O2SAT 95; BMI 48.5
--- NOTE | 2024-07-31 19:46 | ED.GENADULT ---
HPI - General Adult General Chief complaint: Lower Extremity Swelling Stated complaint: Both feet and legs are swollen Time Seen by Provider: 07/31/24 19:29 History of Present Illness HPI narrative: This 64-year-old male comes in reporting increased swelling in both lower extremities over the past 3 or 4 days. He states that he has gained about 2-3 lb during this time. He is taking Lasix 20 mg daily and has been doing so for the past couple months. He states that he is on a low-sodium diet. He does not report any new shortness of breath and states that he can get around like he normally does. Related Data Home Medications ?Medication ?Instructions ?Recorded ?Confirmed Semaglutide 0.4 ml INJECTION QWEEK 07/31/23 07/31/24 triamcinolone acetonide 0.1 % 1 applic topical BID PRN 04/12/24 05/31/24 topical cream Previous Rx's ?Medication ?Instructions ?Recorded acetaminophen 650 mg 650 mg PO Q12H PRN arthritis #180 07/10/23 tablet,extended release (Tylenol tabs Arthritis Pain) citalopram 20 mg tablet 20 mg PO QDAY #90 tabs 04/12/24 fluticasone furoate 100 1 inh inhalation QDAY #90 ea 04/12/24 mcg/actuation blister powder for inhalation (Arnuity Ellipta) simvastatin 20 mg tablet 20 mg PO QPM #90 tabs 04/12/24 tamsulosin 0.4 mg capsule 0.4 mg PO QHS #90 caps 04/12/24 triamterene 37.5 1 tab PO QDAY #90 tabs 04/12/24 mg-hydrochlorothiazide 25 mg tablet trazodone 100 mg tablet 100 mg PO QHS PRN insomnia #90 tabs 05/31/24 furosemide 20 mg tablet 20 mg PO QAM #90 tabs 07/13/24 furosemide 20 mg tablet (Lasix) 20 mg PO DAILY #20 tabs 07/31/24 Allergies Allergy/AdvReac Type Severity Reaction Status Date / Time penicillin V Allergy Mild Unknown Verified 07/31/24 19:18 NSAIDS (Non-Steroidal Allergy Unknown Hx of Verified 07/31/24 19:18 Anti-Inflamma gastrobypass Review of Systems Status of ROS: Reports: 10 or more systems reviewed and unremarkable except as noted in History and below Narrative: Constitutional: No fevers, no weight gain or loss. Eyes: No discharge. No vision changes. HENT: No congestion, no sore throat, no ear pain. Cardiovascular: No chest pain, no palpitations. Respiratory: No shortness of breath, no wheezes, no cough. Gastrointestinal: No abdominal pain, no vomiting, no diarrhea. Genitourinary: No dysuria, no hematuria. Musculoskeletal: Normal range of motion. Bilateral pedal edema with increased pain. Skin: No rashes, no pruritis. Neurological: No dizziness, weakness, sensory change, speech change. Endo/Heme/Allergies: No bruising or bleeding. No polydipsia. Pysch: no suicidality, no anxiety, no insomnia. All other systems reviewed and are negative. PFSH PFSH Medical History Morbid (severe) obesity due to excess calories ?E66.01 - Morbid (severe) obesity due to excess calories (ICD-10) Health care directive on file ?Z78.9 - Other specified health status (ICD-10) Surgical History Status post gastroplasty ?Z98.890 - Other specified postprocedural states (ICD-10) History of Sergio-en-Y gastric bypass (~02/2021) ?Z98.84 - Bariatric surgery status (ICD-10) History of colonoscopy ?Z98.890 - Other specified postprocedural states (ICD-10) History of cholecystectomy ?Z90.49 - Acquired absence of other specified parts of digestive tract (ICD-10) Family History Other Colon cancer Social History (Updated 04/12/24 @ 08:11 by Chacha Perez~[facility], RELATIONS DIRECTOR) What is your current living situation?: I presently have a place to live Problems where you live: no known problems In the past 12 months, utilities in danger of being shut off: no In past 12 months, lack of transportation kept you from medical appts, meetings, work, or getting things needed for daily living: no In the past 12 mos, have been you worried that your food would run out before you had money to buy more?: never true In the past 12 mos, the food you bought just didn't last and you didn't have money to buy more?: never true Smoking Status: Former smoker What tobacco products do you use: cigarettes Smoking quit date/years: <= 15 years ago Do you use any of these nicotine containing products: None Second hand tobacco smoke exposure: No How often do you have a drink containing alcohol: never AUDIT-C Alcohol total score: 0 Non-prescribed substance use: denies use How often does anyone, including family, friends and others, physically hurt you: never How often does anyone, including family, friends and others, insult or talk down to you: never How often does anyone, including family, friends and others, threaten you with harm: never How often does anyone, including family, friends and others, scream or curse at you: never Exam Narrative: Exam Narrative: Constitutional: Well-developed, well-nourished, no acute distress. HEENT: Normocephalic, atraumatic. Neck: Normal range of motion. Nontender. Supple. Heart: Intact distal pulses. Lungs: No chest discomfort. No wheezes, rhonchi, or rales. Abdomen: Nontender. Back: Normal range of motion. Extremities: Normal range of motion. No injury. Bilateral pedal edema. No erythema or sign of infection. No breakdown of skin. Skin: Intact. No rash. Warm. No erythema or pallor. Neurologic: No altered sensation. No weakness. Alert and oriented. Psychiatric: No suicidality. No anxiety or depression. No insomnia. Nursing notes and vitals signs are reviewed. Const: Vital Signs, click to edit/add: Vital Signs - 24 hr 07/31/24 19:11 Temperature 97.8 F Pulse Rate [Pulse Oximeter] 72 Respiratory Rate 18 Blood Pressure [Le ft Upper Arm] 171/69 H Pulse Oximetry 95 Oxygen Delivery Me thod Room Air Course Vital Signs Vital signs: Initial Vital Signs Temperature 97.8 F 07/31/24 19:11 Temperature Source Temporal Artery Scan 07/31/24 19:11 Pulse Rate 72 07/31/24 19:11 Respiratory Rate 18 07/31/24 19:11 Blood Pressure 171/69 H 07/31/24 19:11 Blood Pressure Mean 103 07/31/24 19:11 Blood Pressure Position Sitting 07/31/24 19:11 Pulse Oximetry 95 07/31/24 19:11 Oxygen Delivery Method Room Air 07/31/24 19:11 Vital Signs Temperature 97.8 F 07/31/24 19:11 Pulse Rate 72 07/31/24 19:11 Respiratory Rate 18 07/31/24 19:11 Blood Pressure 171/69 H 07/31/24 19:11 Pulse Oximetry 95 07/31/24 19:11 Oxygen Delivery Method Room Air 07/31/24 19:11 Temperature 97.8 F 07/31/24 19:11 Pulse Rate 72 07/31/24 19:11 Respiratory Rate 18 07/31/24 19:11 Blood Pressure 171/69 H 07/31/24 19:11 Pulse Oximetry 95 07/31/24 19:11 Oxygen Delivery Method Room Air 07/31/24 19:11 Medical Decision Making MDM Narrative Medical decision making narrative: This patient is currently taking Lasix 20 mg daily and states that he urinates a timer to over the next hour or so but then does not notice much affect of the diuretic. He arrives here with normal vital signs. His exam does show bilateral pedal edema but no other complication. I recommended that he increase the dose to 40 or 60 mg daily. Whatever it takes to obtain significant diuresis. I advised him to follow-up with his primary physician. I did provide a prescription for some extra tablets of Lasix to accommodate this increase of dose. Discharge Plan Discharge Clinical Impression: Pedal edema Patient Disposition: Home, Self-Care Condition: Stable Additional Instructions: Okay to increase Lasix from 20 mg to 40 or 60 mg daily, what ever it takes to obtain sufficient diuresis. Follow up with MD for ongoing management. Prescriptions: New furosemide [Lasix] 20 mg tablet 20 mg PO DAILY Qty: 20 2RF No Action triamcinolone acetonide 0.1 % cream 1 applic topical BID PRN Rx Instructions: Small amount twice a day on forearms as needed for itching max 7 days citalopram 20 mg tablet 20 mg PO QDAY Qty: 90 3RF simvastatin 20 mg tablet 20 mg PO QPM Qty: 90 3RF triamterene-hydrochlorothiazid 37.5-25 mg tablet 1 tab PO QDAY Qty: 90 3RF tamsulosin 0.4 mg capsule 0.4 mg PO QHS Qty: 90 3RF Arnuity Ellipta 100 mcg/actuation blister with device 1 inh inhalation QDAY Qty: 90 3RF trazodone 100 mg tablet 100 mg PO QHS PRN (Reason: insomnia) Qty: 90 3RF Semaglutide 0.4 ml INJECTION QWEEK acetaminophen [Tylenol Arthritis Pain] 650 mg tablet extended release 650 mg PO Q12H PRN (Reason: arthritis) Qty: 180 0RF furosemide 20 mg tablet 20 mg PO QAM Qty: 90 3RF Follow Up/Referrals: Chandrakant Garcia MD [Primary Care Provider] - Stand Alone Forms: [facility] Info Instructions
--- OUTSIDE RECORDS SUMMARY | 2024-07-31 20:02 | XMS_ITS | CCD ---
Author Organization Unknown Care Team Providers Care Pouncing Machine Operator Name Role Phone Multiple Tube Winding Machine Operator, [place] Primary Care Provider Unava ilable Unavailable Chronic Care Management Unavaila ble Summary Purpose DataExchange Insurance Providers Payer name Policy type / Coverage type Covered alliance party ID Effective Begin Date Effective End Date [facility] Commercial Insurance [id number] Unknown [facility] Commercial Insurance [id number] Unknown Family History Family History data not found Medication Administered No Medication Administered data Reason For Visit No Reason For Visit data
--- OUTSIDE RECORDS SUMMARY | 2024-07-31 20:02 | XMS_ITS | Clinical Summary ---
Author Organization [facility] [address] [facility] Address [place], [place] [address] Care Team Providers Care Studio Operations Engineer In Charge Name Role Phone Chandrakant Garcia MD Primary Care Provider Jason Nation MD Unavailable Anum Keane RN Unavailable [phone] Unavailable [phone] Allergies Active Allergy Reactions Criticality Noted Date Comments Nsaids (Non-Steroidal Anti-Inflammatory Drug) Other - Describe In Comment Field 01/30/2021 H/o felicia-n-y gastric bypass. AVOID NSAIDs and aspirin due to risk of gastric and/or G-J anastomotic ulcers. If Antonio must be on short course of NSAIDs or aspirin, use enteric coated if possible and use PPI // Anum Hernandez RN, Bariatric Nurse Clinician, [facility] Weight Management 01/30/2021 Penicillins Nausea [...] Diabetes Father Heart Disease Father CHF, CAD-first [place] age 50 Hypertension Father Obesity Father Obesity [...] on file Legal Sex Male 6:40 AM THREAD CHECKER Gender Identity Not on file Sexual Orientation [...] ANTI HIV 1/2 Routine 08/13/2013 10:19 AM THREAD CHECKER Peripheral neuropathy (HC) LIPID PANEL W REFLEX MEASURED LDL Routine 04/26/2013 11:20 AM THREAD CHECKER Lipid screening from Last 3 Months or Most Recently Relevant to Health Maintenance Results * ANTI HIV 1/2 (08/13/2013 10:19 AM THREAD CHECKER) ANTI HIV 1/2 Non-reacti ve [facility] Blood specimen (specimen) BLOOD SPECIMEN / Unknown 08/13/2013 10:19 AM THREAD CHECKER 08/13/2013 10:10 AM THREAD CHECKER us Kely Caal MD SEND OUTS Final R esult [facility] [place]NAL ZIP [id number] [place] [id number] * LIPID PANEL W REFLEX MEASURED LDL (04/26/2013 11:20 AM THREAD CHECKER) CHOLESTEROL,TOTAL 144 100 - 199 mg/dL 04/26/2013 12:[address] [facility] TRIGLYCERIDES 113 <150 mg/dL 04/26/2013 12:17 PM [facility] HDL CHOLESTEROL 45 >40 mg/dL 3 12:[address] [facility] NON-HDL CHOLESTEROL 99 <145 mg/dl 04/26/2013 12:17 PM [facility] CHOL/HDL RATIO 3.20 <4.50 04/26/2013 12:17 PM [facility] LDL CHOLESTEROL 76 <=130 mg/dL 04/26/2013 12:17 PM [facility] PATIENT STATUS NON-FASTI NG 04/26/2013 12:17 PM [facility] Blood specimen (specimen) BLOOD SPECIMEN / Unknown Venipuncture / Unknown 04/26/2013 11:20 AM THREAD CHECKER 04/26/2013 11:20 AM [place] Kely Caal MD CHEMISTRY Final R esult Performing Organization Address City/State/[place] Co de Phone Number [facility] [address] [place] [address] from Last 3 Months or Most Recently Relevant to Health Maintenance [place] [id number] [facility] [id number] [place] [id number] WORKERS COMP Advance Directives * Full Code (Latest Code Status on File) Date Activated Date Inactivated Comments 01/29/2021 7:29 AM 01/31/2021 6:36 PM Question Answer Comments Code Status Discussion: Not Discussed * Full Code Date Activated Date Inactivated Comments 06/06/2020 5:55 AM 06/06/2020 11:52 AM Question Answer Comments Code Status Discussion: Not Discussed Care Teams Studio Operations Engineer In Charge Relationship Specialty Start Date End Date Chandrakant Garcia MD [address] [facility] [place] [place] [id number] PCP - General Family Practice 05/02/20 Jason Nation MD [address] [address] Consulting Physician Surgery - General 05/02/20 Anum Keane RN [address] [address] Registered Nurse 05/02/[address] [address] Registered Dietitian Leather Etcher 05/02/20
--- OUTSIDE RECORDS SUMMARY | 2024-07-31 20:02 | XMS_ITS | CCD ---
Author Organization Unknown Care Team Providers Care Web Services Developer Name Role Phone [place], [place] Primary Care Provider Unava ilable Unavailable Chronic Care Management Unavaila ble Summary Purpose DataExchange Insurance Providers Payer name Policy type / Coverage type Covered green party ID Effective Begin Date Effective End Date [facility] Commercial Insurance [id number] Unknown [facility] Commercial Insurance [id number] Unknown Family History Family History data not found Medication Administered No Medication Administered data Reason For Visit No Reason For Visit data
--- OUTSIDE RECORDS SUMMARY | 2024-07-31 20:02 | XMS_ITS | Clinical Summary ---
Author Organization [facility] Address [address] , [address] [place] [address] Phone Care Team Providers Care Barrel Builder Name Role Phone Ruma ROWE, Morris Lynch Conditions or Problems Problem Name Problem Code Onset Date Status Entry Date Provider Comment Standard Description Annotate Left median neuropathy 527403016 (SNOMED CT) Active Morris Hendrix MD Median neuropathy Cervical radiculopath y, left 26067906 (SNOMED CT) Active Morris Hendrix MD Cervical [...] Procedures Code Procedure Name Date Entry Date CPT-95634 Nerve Conduction 9-10 studies CPT-60195 EMG with NCS (5+ muscles) - 1 limb 11/07 Vital Signs No information available. Immunizations No information available. Advance Directives No information available.
== END 2024-07-31 20:05 | disposition home or self-care (01) ==
LOC: ED 20:00
PROVIDERS: Emergency Provider Emergency Medicine Emergency Medical Services; PCP Family Medicine
DX: R60.0 Localized edema (principal)
CPT/HCPCS: 99283; 99284

== ENCOUNTER 2024-10-21 07:45 | Outpatient (CLI) | payer MEDICARE, SELFPAY | END 2024-10-21 07:46 | disposition home or self-care (01) | LOC: NFLDREF 10-29 18:38 | PROVIDERS: PCP Family Medicine; Referring Provider Family Medicine; Visit Provider Family Medicine | DX: R60.0 Localized edema (principal); I83.813 Varicose veins of bilateral lower extremities with pain | CPT/HCPCS: 80048 ==

== ENCOUNTER 2024-11-29 07:45 | Outpatient (CLI) | payer MEDICARE, SELFPAY | END 2024-11-29 07:46 | disposition home or self-care (01) | LOC: NFLDREF 12-02 13:06 | PROVIDERS: PCP Family Medicine; Referring Provider Family Medicine; Visit Provider Family Medicine | DX: E87.6 Hypokalemia (principal); I10 Essential (primary) hypertension | CPT/HCPCS: 80048 ==

== ENCOUNTER 2024-12-01 10:03 | Outpatient (CLI) | payer MEDICARE, SELFPAY | END 2024-12-01 10:04 | disposition home or self-care (01) | LOC: NFLDREF 10:05 | PROVIDERS: PCP Family Medicine; Visit Provider Family Medicine | DX: E87.6 Hypokalemia (principal); E66.01 Morbid (severe) obesity due to excess calories; R60.0 Localized edema | CPT/HCPCS: 84443 ==

== ENCOUNTER 2025-04-11 07:30 | Outpatient (CLI) | payer MEDICARE, SELFPAY | END 2025-04-11 07:31 | disposition home or self-care (01) | LOC: NFLDREF 04-12 17:49 | PROVIDERS: PCP Family Medicine; Referring Provider Family Medicine; Visit Provider Family Medicine | DX: E78.5 Hyperlipidemia, unspecified (principal) | CPT/HCPCS: 80053; 80061 ==